=== PATIENT | female | born 1990 | race Caucasian/White ===

== ENCOUNTER 2020-07-30 16:08 | Emergency (ER) | payer BC ==
[~2020-07-30] VITALS: Ht 177.8 cm; Wt 68.0 kg
[2020-07-30 16:16] VITALS: BP 147/90
[2020-07-30] MEDS ORDERED: LIDOCAINE HCL/MPF 1% 30 ML VIAL IJ ONE (16:21)
[2020-07-30] MEDS ORDERED: TDAP [DIPH/PERTUSSIS/TET] 0.5 ML VIAL IM ONE ×2 (16:30→16:45)
[2020-07-30] MEDS ORDERED: LIDOCAINE 2% 20 ML MDV TP ONE (16:30)
--- NOTE | 2020-07-30 16:42 | NUR ---
CHAS NAVARRO AT BEDSIDE FOR SUTURING
[2020-07-30] MEDS ORDERED: LIDOCAINE 2% 20 ML MDV ONE (16:45)
--- NOTE | 2020-07-30 18:01 | NUR ---
Lac repair done by Jeaneth covered with dry dressing. Patient discharged to home in stable condition. Written and verbal after care instructions given. Patient verbalizes understanding of instruction.
== END 2020-07-30 18:03 | disposition home or self-care (01) ==
LOC: ER 16:15
DX: S61.213A Laceration without foreign body of left middle finger without damage to nail, initial encounter (principal); Z88.2 Allergy status to sulfonamides; Z88.1 Allergy status to other antibiotic agents; W26.0XXA Contact with knife, initial encounter; Y93.89 Activity, other specified; Y92.89 Other specified places as the place of occurrence of the external cause; Y99.8 Other external cause status
CPT/HCPCS: 12001; 90471; 90715; 99283; J3490

== ENCOUNTER 2020-09-25 21:29 | Emergency (ER) | payer BC ==
[~2020-09-25] VITALS: Ht 177.8 cm; Wt 68.0 kg
[2020-09-25 21:39] VITALS: BP 124/68
[2020-09-25] MEDS ORDERED: GELATIN SPONGE,ABSORBABLE 1 SPONGE SPONGE TP ONE (21:43)
== END 2020-09-25 22:33 | disposition home or self-care (01) ==
LOC: ER 21:29
DX: S61.210A Laceration without foreign body of right index finger without damage to nail, initial encounter (principal); Z88.2 Allergy status to sulfonamides; Z88.1 Allergy status to other antibiotic agents; W26.8XXA Contact with other sharp object(s), not elsewhere classified, initial encounter; Y93.89 Activity, other specified; Y92.89 Other specified places as the place of occurrence of the external cause; Y99.8 Other external cause status
CPT/HCPCS: 99282; A6403